=== PATIENT | male | born 1995 | race Two or more races ===

== ENCOUNTER 2023-12-21 16:56 | Emergency (ER) | payer MEDICAID ==
[~2023-12-21] VITALS: Ht 172.7 cm; Wt 104.5 kg
[2023-12-21 17:08] VITALS: BP 114/73; PULSE 75; RESP 18; TEMP 97.3
[2023-12-21] MEDS ORDERED: IBUP-1492 PO (18:18)
== END 2023-12-21 18:31 | disposition home or self-care (01) ==
LOC: EMS 17:02
DX: S89.91XA Unspecified injury of right lower leg, initial encounter (principal); X58.XXXA Exposure to other specified factors, initial encounter; Y93.89 Activity, other specified; Y92.89 Other specified places as the place of occurrence of the external cause; Y99.8 Other external cause status
CPT/HCPCS: 99283